=== PATIENT | female | born 1950 | race Caucasian/White ===

== ENCOUNTER 2016-12-10 07:58 | Day surgery (SDC) | payer MEDICARE, OTHER ==
[~2016-12-10] VITALS: Ht 160 cm; Wt 76.2 kg
[~2016-12-10 07:58] MED LIST: 0.9% Sodium Chloride 1,000 ML IV SCH; CYAN1TAB42 PO; ESTR0.9T PO; LEVO75TA4 PO; LISI1TAB9 PO; MULT-36 PO; NORT25CA PO; POTA20TA16 PO; SUMA50TA31 PO; Sodium Chloride LOK Flush 10 mL Syringe IV PRN; [UNRECOGNIZED DRUG - CODE] PO; fentaNYL-PF 50 mCg/mL 2 mL Inj IVPUSH PRN
[2016-12-10 08:32] VITALS: BP 140/76; PULSE 57; RESP 12; O2SAT 97
[2016-12-10 09:11] VITALS: BP 121/70; PULSE 62; RESP 14; O2SAT 98
[2016-12-10 09:21] VITALS: BP 116/64; PULSE 60; RESP 14; O2SAT 100
[2016-12-10 09:31] VITALS: BP 121/77; PULSE 61; RESP 14; O2SAT 99
--- NOTE | 2016-12-10 13:18 | ENDO ---
[address] [address] ENDOSCOPY PROCEDURE PATIENT: LISA JUAREZ : 1950 MR#: [id number] ADMIT: 12/10/2016 JOB ID: [id number] PROCEDURE: Colonoscopy. INDICATION: Screening. ANESTHESIA: Patient's ASA classification is two. Mallampati score is two. MEDICATIONS: 1. Versed 3 mg. 2. Fentanyl 75 mcg. INSTRUMENT USED: PCF-H180AL PREPARATION QUALITY: Fair in the right colon. No large polyps were seen, however smaller polyps may have been missed. The remainder of the colon prep was otherwise good. PROCEDURE DETAILS: After informed consent was obtained, the patient was brought into the GI suite where she was placed on oxygen via nasal cannula and monitored with continuous pulse oximeter, telemetry, and blood pressure monitoring. A time-out was performed, then she was placed in the left lateral decubitus position and medications were administered for sedation. Digital rectal exam was performed, which was unremarkable. The colonoscope was then inserted into the rectum and advanced under direct visualization to the cecum, which was identified by the presence of the ileocecal valve and appendiceal orifice. Once the cecum was reached, the colonoscope was withdrawn back into the rectum as the mucosa and lumen were examined. In the rectum, retroflexion was performed. Following retroflexion, the remaining air in the rectum was suctioned and the procedure was completed. FINDINGS: 1. The prep in the cecum and ascending colon was fair after large amounts irrigation and suctioning. No large polyps were seen, however smaller polyps may have been missed. The remainder of the colon exam was otherwise unremarkable. 2. The terminal ileum was intubated and appeared normal. IMPRESSION: Normal colonoscopy from rectum to terminal ileum. RECOMMENDATIONS: Repeat colonoscopy in five years. COMPLICATIONS: None. ESTIMATED BLOOD LOSS: Zero.
== END 2016-12-10 23:59 | disposition home or self-care (01) ==
LOC: END 07:58
PROVIDERS: ATTEND Internal Medicine Gastroenterology
DX: Z12.11 Encounter for screening for malignant neoplasm of colon (principal); K58.9 Irritable bowel syndrome, unspecified; I10 Essential (primary) hypertension; E78.5 Hyperlipidemia, unspecified; E03.9 Hypothyroidism, unspecified; E53.8 Deficiency of other specified B group vitamins; R01.1 Cardiac murmur, unspecified
CPT/HCPCS: G0121; G0500; J2250; J3010; J7030